=== PATIENT | female | born 1945 | race Caucasian/White ===

== ENCOUNTER 2016-12-24 11:24 | Observation (INO) | payer MEDICARE, MEDICAID ==
[2016-12-24] VITALS (8 sets, daily range): BP systolic 85–190; BP diastolic 51–75; PULSE 68–87; RESP 16–23; O2SAT 92–100
[~2016-12-24] VITALS: Ht 152.4 cm; Wt 55.1 kg
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
[2016-12-24] MEDS ORDERED: SIMV40TA5 PO (12:09)
[2016-12-24] MEDS ORDERED: ASPI-973 PO (12:09)
[2016-12-24] MEDS ORDERED: DOCU240C41 PO (12:09)
[2016-12-24] MEDS ORDERED: SERT20OR6 PO (12:09)
[2016-12-24] MEDS ORDERED: LOSA25TA21 PO (12:09)
[2016-12-24] MEDS ORDERED: 0.9% Sodium Chloride 1,000 ML IV ONE ×2 (12:15→13:35)
[2016-12-24 12:21] LABS: BASOPHILS % (AUTO) 0.1 % (0-3); EOSINOPHILS % (AUTO) 0.4 % (0-5); Mean Corpuscular Hemoglobin 27.4 pg (27.0-35.0); Mean Corpuscular Volume 82.4 fL (81-100); Platelet Count 163 bil/L (150-400)
--- NOTE | 2016-12-24 12:40 | DRSVH ---
PROCEDURE: X-RAY CHEST ONE VIEW, PORTABLE ([id number]) INDICATIONS: weak TECHNIQUE: One view of the chest was acquired. COMPARISON: None. FINDINGS: Surgical changes and devices: None. Lungs and pleura: No pleural effusions or pneumothorax. Lungs are clear. Mediastinum: Mediastinal contours appear normal. Heart size is normal. Bones and chest wall: No suspicious bony lesions. Overlying soft tissues appear unremarkable. IMPRESSION: No acute cardiopulmonary disease process. Dictated by: Shama Zayas MD, PhD on 12/24/2016 at 12:38 Approved by: Shama Zayas MD, PhD on 12/24/2016 at 12:39
[2016-12-24 13:15] LABS: TROPONIN T < 0.010 ug/L (0.0-0.011)
[2016-12-24 13:15] LABS: APPEARANCE,URINE CLOUDY (CLEAR,HAZY); COLOR,URINE DARK YELLOW (YELLOW); OCCULT BLOOD,URINE NEGATIVE (NEGATIVE); UROBILINOGEN,URINE NORMAL (NORMAL)
[2016-12-24] MEDS ORDERED: cefTRIAXone Inj 2,000 MG in Dextrose 5% Minibag Plus 50 ML IV ONE (13:35)
[2016-12-24] MEDS ORDERED: Alum-Mag Hydrox-Simeth 30 mL Suspension PO PRN ×2 (13:40→18:30)
[2016-12-24] MEDS ORDERED: Ondansetron 2 mg/mL 2 mL Inj IVPUSH PRN ×2 (13:40→18:30)
[2016-12-24] MEDS ORDERED: SERT50TA9 PO (14:16)
[2016-12-24] MEDS ORDERED: SENN-133 PO (14:17)
[2016-12-24] MEDS ORDERED: TROL35.4 TP (14:20)
[2016-12-24] MEDS ORDERED: POLY17PO6 PO (14:20)
[2016-12-24] MEDS ORDERED: GUAI-656 PO (14:20)
--- NOTE | 2016-12-24 16:21 | NUR ---
Admit: Patient arrived to [facility] @ approx 1615. Transferred from stretcher to bed. Incontinent of stool, skin care provided. Dime sized open area on gluteal cleft, along with blanchable redness on buttocks. Alert & oriented. Denies pain, SOB, nausea, recent falls. Bed rails up x2, bed in low and locked position, call light within reach. Telemetry box #56 placed. Oriented to room and call light system.
[2016-12-24] MEDS ORDERED: HYDROcodone-APAP 5-325 mg Tablet PO PRN (18:30)
[2016-12-24] MEDS ORDERED: Polyethylene Glycol (PEG) 17 Gm Powder PO PRN ×2 (18:30→18:40)
[2016-12-24] MEDS ORDERED: guaiFENesin 20 mg/mL 10 mL Syrup PO PRN (18:40)
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
[2016-12-24] MEDS: 0.9% Sodium Chloride 1,000 ML IV SCH (18:50)
[2016-12-24] MEDS ORDERED: ASPERCREME TOPICAL PRN (19:00)
[2016-12-25] VITALS (8 sets, daily range): BP systolic 94–136; BP diastolic 53–74; PULSE 65–93; RESP 18–20; O2SAT 92–96
[2016-12-25] MEDS: 0.9% Sodium Chloride 1,000 ML IV SCH (05:15)
[2016-12-25 06:50] LABS: BASOPHILS % (AUTO) 0.2 % (0-3); EOSINOPHILS % (AUTO) 0.4 % (0-5); MONOCYTES % (AUTO) 8.8 % (4-12); Mean Corpuscular Hemoglobin 27.5 pg (27.0-35.0); NEUTROPHILS % (AUTO) 76.8 % (40-74); Platelet Count 123 bil/L (150-400)
--- NOTE | 2016-12-25 08:18 | PCM.PNMED ---
Subjective Date of Service Dec 25, 2016 Subjective Feels improved, less weak. Exam Vital Signs Vital Sign - Last Date Time Temp Pulse Resp B/P Pulse Ox O2 Delivery O2 Flow Rate FiO2 12/25/16 06:36 93 12/25/16 06:21 36.6 20 136/71 95 Room Air Intake and Output 12/24/16 12/24/16 12/25/16 Cumulative From/Thru 15:00 23:00 07:00 12/24/16 11:26 - 12/25/16 05:15 Intake Total 2000 ml 983 ml 2983 ml Balance 2000 ml 983 ml 2983 ml IV Total 2000 ml 983 ml 2983 ml # Bowel Movements 1 1 Exam General: Alert and oriented, no acute distress Heart: Regular Lungs: Clear anteriorly and laterally Abdomen: Soft, non-tender Extremities: No pedal edema IVs and Medications Medications Reviewed: Medications were reviewed in detail Lab and Diagnostics Result Diagram: 12/25/16 0620 12/25/16 0620 X-Rays, CTs and MRIs Chest x-ray with no acute process 12-lead ECG Sinus rhythm with some nonspecific STT wave changes which in the anterior leads show just slight T-wave inversion Assessment & Plan # UTI with hypotension - Received 2 L NS in the emergency department and SBP then stable with a systolic in the 120s and no tachycardia, SBP now labile but overall stable - normal saline at 100 mL per hour started at admit, will now DC - Ceftriaxone given in the emergency department and will continue this pending culture results - 2 blood cultures and urine culture from yesterday afternoon with no results yet # Acute weakness probably related to UTI - Obtain physical therapy evaluation # Hypertension - losartan held on admission but will resume now - Creatinine 1.5 on admission has improved to 1.07 this morning # Random glucose on admission 164 - Repeat this morning 113 # Abnormal liver function tests - Improved this morning, possibly related to hypotension prior to admission Prabha Genao MD Dec 25, 2016 08:18
--- NOTE | 2016-12-25 11:16 | NUR ---
Evaluation completed/discharge to nsg Please go to "Notes" then click on "Assessments and Notes" (bottom left corner of screen). Then select appropriate discipline tab on top of screen. no further PT indicated; pt at/near baseline; receives total assist at AF
--- NOTE | 2016-12-25 13:06 | NUR ---
BALBINA explained and signed. Copy of Balbina and Medicare self administered medication information given to pt.
[2016-12-25] MEDS ORDERED: cefTRIAXone Inj 1,000 MG in Dextrose 5% Minibag Plus 50 ML IV SCH (13:30)
--- NOTE | 2016-12-25 16:17 | NUR ---
Social Work: Initial Assessment / Multidisciplinary Rounds Data: See initial assessment. Patient is a 71 year old female who was admitted on 12/24/16 for UTI and hypotension per H&P. Patient's insurance is Medicare and [facility] Supp. Patient has no PCP listed at this time. EMR reviewed. SW visited patient's room to discuss discharge planning. SW role explained. Patient resides at [facility] [place] in [place]. Patient uses a wheelchair at baseline and is total assist per her caregiver Nehal. Patient considers her sister Shannan Wheeler ([phone]) and her caregiver to be her main source of support. Patient states that her sister is her DPOA and that AD have been completed on her behalf. Patient states that she doesn't drive and relies on the bus for transportation needs or walking. Patient denies having a hx of home health services or SNF. Patient denies having intermediate frame tender care insurance or VA benefits. Upon discharge, patient states that her sister or caregiver will assist with transportation home. SW provided patient with a discharge planning checklist and encouraged to call with any questions on concerns. Phone number provided. Morning rounds were held at patient's bedside. No concerns were noted by staff or MD. SW will continue to follow. Assessment: Patient admitted to [facility] from [facility]. Plan: Patient will likely return to [facility] when medically stable. Transportation will be provided by patient's sister or caregiver. SW will continue to follow for needs. DALLIN Modi Addendum: 12/25/16 at 1631 by STEVEN FENTON Amended: Links added.
--- NOTE | 2016-12-25 19:13 | NUR ---
Activity and Skin Up with PT this shift. Most of shift spent in chair. Waffle cushion ordered for coccyx wound. Barrier cream and mepilex in place. Wound care consult in place.
[2016-12-26 00:17] VITALS: BP 146/79; PULSE 78; RESP 20; O2SAT 95
--- NOTE | 2016-12-26 05:52 | NUR ---
Rest: Pt. appeared to be sleeping for majority of shift. Denies pain. Denies SOB. No overt signs or symptoms of distress. Appeared to be restful night for pt. Turning pt. q2 hr.
[2016-12-26 06:19] VITALS: BP 114/64; PULSE 76; RESP 18; O2SAT 93
--- NOTE | 2016-12-26 08:22 | NUR ---
AM meds AM meds scanned manually, scanner NOT working. Call made to IT, will be up to troubleshoot. Disconnecting connection and scanning barcode on scanner wasn't effective.
--- NOTE | 2016-12-26 08:22 | PCM.DIMED ---
Discharge Instructions Date of Service Dec 26, 2016 Dates of Hospitalization Dec 24, 2016 at 15:54 Diet Discharge Diet: Other (your blood sugar was slightly elevated so avoid sugary foods and simple carbohydrates) Activity Discharge Activity: Home Health Phyical Therapy Patient Instructions Follow-up with PCP in: 2 weeks Prabha Genao MD Dec 26, 2016 08:22
[2016-12-26] MEDS ORDERED: AMOX500C2 PO (08:23)
--- NOTE | 2016-12-26 08:28 | PCM.DC.MED ---
Discharge Summary Date of Service Dec 26, 2016 Dates of Hospitalization Date of Hospital Admission Dec 24, 2016 at 15:54 Date of Discharge: Dec 26, 2016 Providers: Admitting Physician: Prabha Navarro MD Primary Care Physician: Piter Attending Physician: Prabha Navarro MD Diagnosis at Time of Discharge Diagnosis at Time of Discharge UTI Procedures XRay, CTs & MRIs Chest x-ray with no acute process ECG 12 Lead Sinus rhythm with some nonspecific STT wave changes which in the anterior leads show just slight T-wave inversion Brief History She became increasingly weak at her assisted living facility and was noted to have hypotension with a systolic blood pressure in the 80s and was brought to the emergency department for evaluation. She denies any other symptoms, no fever chills or sweats, no dysuria, no pain. No cough Hospital Course # UTI with hypotension - Received 2 L NS in the emergency department and SBP then stable with a systolic in the 120s and no tachycardia, SBP now labile but overall stable - normal saline at 100 mL per hour started at admit, will now DC - Ceftriaxone given in the emergency department and continued during hospital stay - On morning of discharge urine culture growing Escherichia coli sensitive to all tested - We will give her a week of amoxicillin as an outpatient - 2 blood cultures are no growth so far # Acute weakness probably related to UTI, improved- she now feels back to her usual self - physical therapy evaluation done, PT recommended # Hypertension - losartan held on admission but resumed next day - Creatinine 1.5 on admission has improved to 1.07 the next morning # Random glucose on admission 164 - Repeat the next morning 113 # Abnormal liver function tests - Improved the next morning, possibly related to hypotension prior to admission Exam Vital Signs (Last) Date Time Temp Pulse Resp B/P Pulse Ox O2 Delivery O2 Flow Rate FiO2 12/26/16 06:19 37.1 76 18 114/64 93 Room Air Exam General: Alert and oriented, no acute distress Heart: Regular Lungs: Clear Abdomen: Soft, non-tender Extremities: No pedal edema Test 12/24/16 11:58 12/24/16 12:35 12/25/16 06:20 Magnesium Level 2.0mg/dL (1.6-2.6) Troponin T < 0.010ug/L (0.0-0.011) Prealbumin 16mg/dL (20-40) Hold Hicks Top Tube Received (Received) Urine Color Dark yellow (YELLOW) Urine Appearance Cloudy (CLEAR,HAZY) Urine pH 5.0 (5.0-8.0) Urine Specific Hanna 1.022 (1.003-1.035) Urine Protein Tracemg/dL (NEG,TRACE) Urine Glucose (UA) Negativemg/dL (NEGATIVE) Urine Ketones Negativemg/dL (NEGATIVE) Urine Occult Blood Negative (NEGATIVE) Urine Nitrite Positive (NEGATIVE) Urine Bilirubin Negative (NEGATIVE) Urine Urobilinogen Normalmg/dL (NORMAL) Urine Leukocyte Esterase Moderate (NEGATIVE) Urine RBC 0-2/hpf (0-2) Urine WBC >50/hpf (0-5) Urine Epithelial Cells Few/hpf (NONE-MOD) Urine Crystals None seen (NONE SEEN) Urine Bacteria Many/hpf (NONE-FEW) Urine Hyaline Casts None/lpf (NONE) Urine Granular Casts Rare (NONE SEEN) Urine Waxy Casts None seen (NONE SEEN) Urine Red Blood Cell Casts None seen (NONE SEEN) Urine White Blood Cell Casts Rare (NONE SEEN) Urine Mucus None seen (None Seen) Urine Trichomonas None seen (NONE SEEN) Urine Yeast None (NONE SEEN) Urinalysis Comment None Urine Culture Reflexed Indicated White Blood Count 5.6th/mm3 (3.8-10.1) Red Blood Count 4.62mil/mm3 (3.90-5.20) Hemoglobin 12.7g/dL (12.0-15.6) Hematocrit 38.8% (35.0-46.0) Mean Corpuscular Volume 84.0fL (81-100) Mean Corpuscular Hemoglobin 27.5pg (27.0-35.0) Mean Corpuscular Hemoglobin Concent 32.7% (32.0-37.0) Red Cell Distribution Width 14.7% (12.3-15.4) Platelet Count 123bil/L (150-400) Neutrophils (%) (Auto) 76.8% (40-74) Lymphocytes (%) (Auto) 13.6% (14-46) Monocytes (%) (Auto) 8.8% (4-12) Eosinophils (%) (Auto) 0.4% (0-5) Basophils (%) (Auto) 0.2% (0-3) Sodium Level 142mEq/L (134-144) Potassium Level 3.9mEq/L (3.5-5.2) Chloride Level 108mEq/L (97-108) Carbon Dioxide Level 22mmol/L (18-29) Blood Urea Nitrogen 16mg/dL (8-27) Creatinine 1.07mg/dL (0.57-1.00) Estimat Glomerular Filtration Rate 72mL/min (>59) Glucose Level 113mg/dL (60-99) Calcium Level 7.9mg/dL (8.5-10.1) Total Bilirubin 0.5mg/dL (0.0-1.2) Aspartate Amino Transf (AST/SGOT) 58U/L (0-50) Alanine Aminotransferase (ALT/SGPT) 158U/L (0-32) Alkaline Phosphatase 137U/L (25-165) Total Protein 5.8g/dL (6.4-8.4) Albumin 3.1g/dL (3.4-5.0) Procalcitonin 1.52ng/mL (0.00-0.08) Discharge Medications Discharge Medications Amoxicillin (Amoxicillin) 500 Mg Capsule 500 MG PO TID Prescribed by: PRABHA NAVARRO MD Aspirin (Aspirin) 81 Mg Tablet 81 MG PO BID (Reported) Docusate Calcium (Stool Softener) 240 Mg Capsule 250 MG PO QAM (Reported) Losartan Potassium (Losartan Potassium) 25 Mg Tablet 25 MG PO QAM (Reported) Sertraline HCl (Sertraline) 50 Mg Tablet 50 MG PO QAM (Reported) Simvastatin (Simvastatin) 40 Mg Tablet 40 MG PO HS (Reported) As needed Guaifenesin (Tussin Chest Congestion) 100 Mg/5 Ml Liquid 200 MG PO Q6H PRN PRN For Cough (Reported) Polyethylene Glycol 3350 (Miralax) 17 Gm Powd.pack 17 GM PO DAILY PRN PRN For Constipation (Reported) Sennosides (Senna) 8.6 Mg Tablet 8.6 MG PO BID PRN PRN For Constipation ( Reported) Trolamine Salicylate/Aloe Vera (Aspercreme 10% Cream) 35.4 Gm Cream..g. 1 APPLIC TP TID PRN PRN For Pain (Reported) Followup Plan Discharge Diet: Other (your blood sugar was slightly elevated so avoid sugary foods and simple carbohydrates) Discharge Activity: Home Health Phyical Therapy Follow-up with PCP in: 2 weeks Prabha Navarro MD Dec 26, 2016 08:28
[2016-12-26 09:23] VITALS: BP 123/79; PULSE 70; RESP 22; O2SAT 92
--- NOTE | 2016-12-26 10:25 | NUR ---
Social Work- discharge: Data:EMR reviewed. Pt is on day 2 of hospitalization for UTI per H&P. Pt is medically stable for discharge. JORGE spoke with [place]-baseball coach of [facility] who is agreeable to have pt return today, [place] would like discharge information to come with the pt and does not need this faxed. order received for HH services-PT. SW spoke with pt who states that SW should talk to sister. SW spoke with Sister Shannan who states that she does not feel like HH services will be needed. Pt gets care and services at facility she lives at. Pt's PCP is Dr. Argentina Rivera in [facility]. Sister is providing transport back to [facility] today. All updated and agreeable to plan. Assessment:Pt who resides at [facility]. Plan:Pt to discharge back to [facility] today via POV. Pt's sister declining HH Services. PT has cleared pt for [facility]. [facility] agreeable to have pt return today. All updated and agreeable to plan. Rebecca Fritz MSW
[2016-12-26 10:49] VITALS: PULSE 98; RESP 20; O2SAT 97
--- NOTE | 2016-12-26 11:48 | NUR ---
Discharge Pt d/c with sister Shannan at 1148 via wc by an aide. Pt denied pain, VSS, IV d/cd, all personal belongings left with pt. Discharge teaching provided, emphasis made on preventing & healing the existing pressure ulcer and water intake. A note made for [facility]'s staff on discharge paper per Shannan's request.
--- NOTE | 2016-12-26 14:17 | NUR ---
Inpatient Wound Nurse SPENCER MARTINES met with patient, her sister, and patient's primary RN just before discharge. Sister requested wound care recommendations be sent to [facility] for treatment of patient's pressure injury. Sacral wound is approximately 2 cm x 2 cm dark pink area, non-blanchable with surrounding tenderness. Since patient is intermittently incontinent, a barrier ointment, such as Calmoseptine may be beneficial to protect an open wound bed from urine and stool. However, since this patient's wound is not open and no wound bed is visualized, a pressure relieving dressing would likely be more effective than ointment. Ointment recommended for CLOSED wounds, such as this Stage 1 pressure injury, is dimethicone. Patient was provided with two 4x4 Mepilex dressings. These may be applied over wound and changed, if not soiled, every 3 to 5 days. If dressing gets wet or dirty, it should be changed immediately. An alternative dressing would be hydrocolloid. SPENCER MARTINES can be reached at [phone] if patient's sister or [facility] staff have questions. This note will be faxed to [facility] on 12/26/16. Addendum: 12/26/16 at 1601 by RILEY FINCH RN Phone call placed to [facility] [place] requesting fax number so that this note with recommendations could be faxed. No answer, message was left requesting call back with fax number. Awaiting call back.
== END 2016-12-26 11:50 | disposition other institution (70) ==
LOC: SED 11:24 → MPC 15:54
PROVIDERS: ADMIT Internal Medicine; ATTEND Internal Medicine
DX: N39.0 Urinary tract infection, site not specified (principal); I95.9 Hypotension, unspecified; I10 Essential (primary) hypertension; R94.5 Abnormal results of liver function studies; I63.8 Other cerebral infarction; R29.810 Facial weakness; Z87.820 Personal history of traumatic brain injury; I49.1 Atrial premature depolarization; Z79.82 Long term (current) use of aspirin; Z79.01 Long term (current) use of anticoagulants; Z99.3 Dependence on wheelchair
CPT/HCPCS: 36415; 71010; 80053; 81000; 83735; 84134; 84145; 84484; 85025; 87040; 87086; 87088; 87186; 93005; 94640; 94664; 96361; 96365; 96366; 97161; 99291; G0378; J0696; J1650; J7030